=== PATIENT | male | born 1990 | race Two or more races ===

== ENCOUNTER 2024-01-25 12:59 | Emergency (ER) | payer OTHER ==
[~2024-01-25] VITALS: Ht 172.7 cm; Wt 81.2 kg
[2024-01-25 13:08] VITALS: TEMP 97.8
[2024-01-25] MEDS ORDERED: LIDOcaine 1% W/epiNEPHrine 1:100,000 20ml vial SQ ONE (14:55)
[2024-01-25] MEDS: LIDOcaine 1% 30ml preserv. free vial IJ STA (15:15)
[2024-01-25 16:59] VITALS: BP 143/88; PULSE 71; RESP 16; O2SAT 97
== END 2024-01-25 17:01 | disposition home or self-care (01) ==
LOC: ER 13:00
DX: S61.412A Laceration without foreign body of left hand, initial encounter (principal); X58.XXXA Exposure to other specified factors, initial encounter; Y93.89 Activity, other specified; Y92.89 Other specified places as the place of occurrence of the external cause; Y99.8 Other external cause status
CPT/HCPCS: 12002; 99282; A6223; J3490; A6449